=== PATIENT | male | born 1950 | race Caucasian/White ===

== ENCOUNTER → 2019-03-15 | Outpatient (CLI) | payer MEDICARE, BC ==
[2019-03-15 15:46] LABS: Basophils # (auto) 0.1 uL; Basophils % (auto) 0.8 % (0.0-2.0); Eosinophils # (auto) 0.2 uL; Eosinophils % (auto) 1.7 % (0.0-7.0); Hematocrit 44.9 % (41.0-53.0); Hemoglobin 15.2 g/dL (13.5-17.5); Lymphocytes # (auto) 2.5 uL; Lymphocytes % (auto) 27.4 % (10.0-50.0); Mean Corpuscular Hemoglobin 31.5 pg (28.0-32.0); Mean Corpuscular Hgb Conc. 33.9 g/dL (32.0-36.0); Mean Corpuscular Volume 93.1 fL (80.0-100.0); Monocytes % (auto) 11.1 % (0.0-12.0); Neutrophils # (auto) 5.3 uL; Nucleated Red Blood Cells % 0.1 %; Platelet Count (auto) 182 10^3/uL (140-450); Red Blood Cells 4.82 10^6/uL (4.5-5.90); Red Cell Distribution Width 13.9 % (11.8-14.3)
[2019-03-15 15:56] LABS: Potassium 4.2 mmol/L (3.5-5.1)
[2019-03-15 16:03] LABS: Albumin 3.8 g/dL (3.4-5.0); BUN/Creatinine Ratio 24.4; Bilirubin, Total 0.5 mg/dL (0.2-1.0); Calcium 9.9 mg/dL (8.5-10.1); Total Protein 7.4 g/dL (6.4-8.2)
== END | disposition home or self-care (01) ==
LOC: LAB 11:26
PROVIDERS: ATTEND Internal Medicine
DX: E03.9 Hypothyroidism, unspecified (principal); K90.9 Intestinal malabsorption, unspecified; C61 Malignant neoplasm of prostate; E29.1 Testicular hypofunction; D51.9 Vitamin B12 deficiency anemia, unspecified; Z79.899 Other long term (current) drug therapy
CPT/HCPCS: 36415; 80053; 80061; 82306; 82607; 83036; 84403; 84439; 84443; 85025

== ENCOUNTER → 2019-03-30 | Outpatient (CLI) | payer MEDICARE, BC ==
[~2019-03-30] VITALS: Ht 170.2 cm; Wt 106.6 kg
[~2019-03-30] MED LIST: ADENOSINE 90 MG in GIVE UN-DILUTED 0 ML IV ONE; ADENOSINE 90 MG/30 ML INJ IV ONE
== END | disposition home or self-care (01) ==
LOC: Rad HDHVI 12:39
PROVIDERS: ATTEND Internal Medicine
DX: I25.10 Atherosclerotic heart disease of native coronary artery without angina pectoris (principal); I10 Essential (primary) hypertension; E78.5 Hyperlipidemia, unspecified; G47.33 Obstructive sleep apnea (adult) (pediatric); Z95.5 Presence of coronary angioplasty implant and graft
CPT/HCPCS: 78452; 93005; 96374; 96375; A9500; J0153

== ENCOUNTER → 2019-07-20 | Outpatient (CLI) | payer MEDICARE, OTHER ==
[~2019-07-20] MED LIST changes: -ADENOSINE 90 MG in GIVE UN-DILUTED 0 ML IV ONE; -ADENOSINE 90 MG/30 ML INJ IV ONE; +ATO40T PO; +CARV25TA PO; +ESOM20CA PO; +LOSA-69 PO
[2019-07-20 09:10] VITALS: BP 107/62
--- NOTE | 2019-07-20 09:10 | NUR ---
PATIENT CAME IN FOR SCHEDULED PREOP APPOINTMENT, AAOX4, AMBULATORY, BREATHING EVEN AND UNLABORED.
[2019-07-20 09:30] VITALS: BP 127/61
--- NOTE | 2019-07-20 09:30 | NUR ---
Pre-Op Discharge Summary: See e-MAR for any medications given for this visit. Pre-op orders received and carried out per MD of EKG, LABS and chest xrays. Patient given a copy of EKG with instructions to go to [facility] out patient for further follow up care.
[2019-07-20 12:01] LABS: Basophils # (auto) 0.1 10 ^3/uL (0-0.2); Basophils % (auto) 0.7 % (0.0-2.0); Eosinophils # (auto) 0.1 10 ^3/uL (0-0.8); Eosinophils % (auto) 1.8 % (0.0-7.0); Hemoglobin 14.3 g/dL (13.5-17.5); Lymphocytes # (auto) 1.9 10 ^3/uL (0.4-5.4); Lymphocytes % (auto) 25.8 % (10.0-50.0); Mean Corpuscular Hemoglobin 30.9 pg (28.0-32.0); Mean Corpuscular Hgb Conc. 33.3 g/dL (32.0-36.0); Mean Corpuscular Volume 92.9 fL (80.0-100.0); Monocytes # (auto) 0.7 10 ^3/uL (0-1.3); Monocytes % (auto) 9.2 % (0.0-12.0); Neutrophils # (auto) 4.5 10 ^3/uL (1.6-8.6); Neutrophils % (auto) 62.5 % (37.0-80.0); Nucleated Red Blood Cells % 0.1 %; Platelet Count (auto) 167 10^3/uL (140-450); Red Blood Cells 4.62 10^6/uL (4.5-5.90); Red Cell Distribution Width 14.1 % (11.8-14.3); White Blood Cell 7.2 10^3/uL (4.4-10.8)
[2019-07-20 12:12] LABS: INR 1.07 (0.9-1.15); Partial Thromboplastin Time 29.6 sec (23.64-32.05)
[2019-07-20 12:14] LABS: Potassium 4.2 mmol/L (3.5-5.1)
[2019-07-20 12:19] LABS: BUN/Creatinine Ratio 27.8; Calcium 8.2 mg/dL (8.5-10.1)
== END | disposition home or self-care (01) ==
LOC: Rad HDHVI 08:57
PROVIDERS: ATTEND Internal Medicine
DX: Z01.812 Encounter for preprocedural laboratory examination (principal); I25.119 Atherosclerotic heart disease of native coronary artery with unspecified angina pectoris; I10 Essential (primary) hypertension; I70.0 Atherosclerosis of aorta; R07.9 Chest pain, unspecified
CPT/HCPCS: 36415; 71046; 80048; 85025; 85610; 85730; 93005; G0463

== ENCOUNTER 2019-07-25 08:48 | Inpatient (IN) | payer MEDICARE, OTHER ==
[~2019-07-25] VITALS: Ht 170.2 cm; Wt 106.5 kg
[2019-07-25] MEDS ORDERED: IODIXANOL 320MG/ML 100ML BTL IV ONE (10:09)
[2019-07-25] MEDS ORDERED: LIDOCAINE 2%HCL (LOCAL ANESTH.) INJ 20ML MDV ONE (10:09)
[2019-07-25] MEDS ORDERED: fentaNYL CITRATE 100 MCG/2 ML VL ONE (10:41)
[2019-07-25] MEDS ORDERED: MIDAZOLAM HCL 1MG/1ML-2 ML VIAL ONE ×2 (10:41→11:51)
[2019-07-25] MEDS ORDERED: VERAPAMIL 2.5MG/ML INJ 2ML VIAL IV ONE (10:41)
[2019-07-25] MEDS ORDERED: HEPARIN SODIUM (PORCINE) 5000 UNITS/ML 1ML VIAL ONE (10:41)
[2019-07-25] MEDS ORDERED: ANGIOMAX 250 MG VIAL IV ONE ×2 (10:41→11:54)
[2019-07-25] MEDS ORDERED: SODIUM CHL 0.9% 50 ML ONE ×2 (10:42→11:54)
[2019-07-25] MEDS ORDERED: PHENYLEPHRINE HCL 10 MG/ML VL ONE (11:00)
[2019-07-25] MEDS ORDERED: diphenhdrAMINE HCL 50 MG/1 ML VL ONE (11:19)
[2019-07-25] MEDS ORDERED: IOHEXOL 350 MG/ML 100ML IJ ONE (12:09)
[2019-07-25] MEDS ORDERED: ASPirin 325 MG TAB ONE (12:24)
[2019-07-25] MEDS ORDERED: CLOPIDOGREL 300 MG TAB ONE (12:24)
[2019-07-25] MEDS ORDERED: NITROGLYCERIN 0.4 MG SL TAB SL PRN (13:00)
[2019-07-25] MEDS ORDERED: PANTOPRAZOLE 40 MG/10 ML VIAL INJ IV ONE (13:00)
[2019-07-25] MEDS ORDERED: CALCIUM CARB 500 MG CHEW TAB PO ONE (13:00)
[2019-07-25] MEDS ORDERED: MORPHINE SULF INJ 2 MG/ML SYRINGE 1ML IV PRN (13:00)
[2019-07-25] MEDS ORDERED: CLOPIDOGREL BISULFATE 75 MG TAB PO ONE (13:45)
[2019-07-25] MEDS ORDERED: LOSARTAN POTASSIUM 50 MG TAB PO ONE (13:45)
[2019-07-25] MEDS ORDERED: CARVEDILOL 12.5 MG TAB PO ONE (13:45)
[2019-07-25] MEDS ORDERED: ASPirin 81 mg TAB PO ONE (13:45)
[2019-07-25 15:51] VITALS: BP 158/85
[2019-07-25 17:12] VITALS: BP 158/85
[2019-07-25 22:00] VITALS: BP 113/55
[2019-07-25] MEDS ORDERED: ATORVASTATIN 20 MG TAB PO SCH (22:00)
[2019-07-25] MEDS: CARVEDILOL 12.5 MG TAB PO SCH (22:03)
[2019-07-26 05:00] VITALS: BP 132/82
[2019-07-26 08:52] VITALS: BP 154/90
[2019-07-26] MEDS: CARVEDILOL 12.5 MG TAB PO SCH (09:36)
[2019-07-26] MEDS ORDERED: PANTOPRAZOLE 40 MG TAB PO SCH (10:00)
[2019-07-26] MEDS ORDERED: ASPirin 81 mg TAB PO SCH (10:00)
[2019-07-26] MEDS ORDERED: CLOPIDOGREL BISULFATE 75 MG TAB PO SCH (10:00)
[2019-07-26] MEDS ORDERED: LOSARTAN POTASSIUM 50 MG TAB PO SCH (10:00)
[2019-07-26 12:48] VITALS: BP 152/72
[2019-07-26 13:00] VITALS: BP 154/85
== END 2019-07-26 13:30 | disposition home or self-care (01) | DRG 247 ==
LOC: CATH 08:48 → TELE-WESTW 08:49
PROVIDERS: ADMIT Internal Medicine; ATTEND Internal Medicine
PROC: 4A023N7 Measurement of Cardiac Sampling and Pressure, Left Heart, Percutaneous Approach (ICD-10-PCS; principal; 2019-07-25)
PROC: 027135Z Dilation of Coronary Artery, Two Arteries with Two Drug-eluting Intraluminal Devices, Percutaneous Approach (ICD-10-PCS; 2019-07-25)
PROC: B2111ZZ Fluoroscopy of Multiple Coronary Arteries using Low Osmolar Contrast (ICD-10-PCS; 2019-07-25)
PROC: B2151ZZ Fluoroscopy of Left Heart using Low Osmolar Contrast (ICD-10-PCS; 2019-07-25)
DX: T82.855A Stenosis of coronary artery stent, initial encounter (principal); I50.42 Chronic combined systolic (congestive) and diastolic (congestive) heart failure; Y83.8 Other surgical procedures as the cause of abnormal reaction of the patient, or of later complication, without mention of misadventure at the time of the procedure; I25.10 Atherosclerotic heart disease of native coronary artery without angina pectoris; E78.5 Hyperlipidemia, unspecified; E66.9 Obesity, unspecified; Z95.5 Presence of coronary angioplasty implant and graft; Z68.34 Body mass index [BMI] 34.0-34.9, adult; I11.0 Hypertensive heart disease with heart failure; Z11.59 Encounter for screening for other viral diseases
CPT/HCPCS: 87635; 92928; 92929; 93458; 99152; 99153; C1874; C1887; C9113; G0378; J2250; Q9967